=== PATIENT | female | born 1995 | race American Indian/Alaskan Native ===

== ENCOUNTER 2018-10-31 21:27 | Emergency (ER) | payer OTHER | END 2018-10-31 21:34 | disposition left against medical advice (07) | LOC: DL.ED 21:27 | DX: Z53.21 Procedure and treatment not carried out due to patient leaving prior to being seen by health care provider (principal) | CPT/HCPCS: 99281 ==

== ENCOUNTER 2020-09-02 10:45 | Emergency (ER) | payer MEDICAID, OTHER ==
[2020-09-02 11:28] VITALS: BP 108/68; PULSE 99
--- NOTE | 2020-09-02 11:31 | EDM.PDOC ---
<Mannie Lopez Enmanuel - Last Filed: 09/02/20 11:47> ED HPI GENERAL MEDICAL PROBLEM - General Chief Complaint: Skin Complaint Stated Complaint: MARTINEZ BITE Time Seen by Provider: 09/02/20 11:25 Source of Information: Reports: Patient, RN - History of Present Illness INITIAL COMMENTS - FREE TEXT/NARRATIVE: 25 y/o F c/o bilateral ear pain and bilateral ear pain after getting frostbite l ast night. Pt had an argument with someone and then left the house she was at. Pt then states she walked 2 miles to her uncles house. Pt was outside for about thirty minutes and had no hat and her jeans had holes in the knees. Pt states she her ears and knees began to hurt shortly after she got to her uncles house. No other med hx. Denies humphreys, vision prob, db, cp, abd pn, other extremity pain and . Onset: Sudden, Other (last night) Location: Reports: Head, Lower Extremity, Left, Lower Extremity, Right Quality: Reports: Ache, Burning Severity: Mild Improves with: Reports: None Worsens with: Reports: None Associated Symptoms: Reports: No Other Symptoms Bilateral Ear Pain Score (Numeric/FACES): 4 - Related Data Allergies Allergy/AdvReac Type Severity Reaction Status Date / Time No Known Allergies Allergy Verified 09/02/20 11:29 Home Meds: Home Meds . [No Known Home Meds] 06/18/15 [History] Past Medical History - Past Health History Medical/Surgical History: Denies Medical/Surgical History Social & Family History - Family History Family Medical History: No Pertinent Family History - Caffeine Use Caffeine Use: Reports: Coffee, Soda - Living Situation & Occupation Living situation: Reports: with Significant Other, with Family ED ROS GENERAL - Review of Systems Review Of Systems: Comprehensive ROS is negative, except as noted in HPI. ED EXAM, SKIN/RASH Exam: See Below Exam Limited By: No Limitations General Appearance: Alert, WD/WN, No Apparent Distress Eye Exam: Bilateral Eye: PERRL Ears: Normal Canal, Normal TMs, Other (bilateral swelling and reddening of the external ear. 3x3x2 cm blister to the L superior ear.) Nose: Normal Inspection, Normal Mucosa, No Blood Throat/Mouth: Normal Inspection, Normal Lips, Normal Teeth, Normal Gums, Normal Oropharynx, Normal Voice, No Airway Compromise Head: Atraumatic, Normocephalic Neck: Normal Inspection, Supple, Non-Tender, Full Range of Motion Respiratory/Chest: No Respiratory Distress, Lungs Clear, Normal Breath Sounds, No Accessory Muscle Use, Chest Non-Tender Cardiovascular: Normal Peripheral Pulses, Regular Rate, Rhythm, No Edema, No Gallop, No JVD, No Murmur, No Rub Peripheral Pulses: 2+: Carotid (L), Carotid (R), Dorsalis Pedis (L), Dorsalis Pedis (R) GI/Abdominal: Soft, Non-Tender (Female) Exam: Deferred Rectal (Female) Exam: Deferred Back Exam: Normal Inspection, Full Range of Motion, NT Extremities: Normal Inspection, Normal Range of Motion, No Pedal Edema, Other (except for bilateral reddening and excoriations to both knees from frostbite) Neurological: Alert, Oriented, CN II-XII Intact, Normal Cognition, Normal Gait, Normal Reflexes, No Motor/Sensory Deficits Psychiatric: Normal Affect, Normal Mood Skin: Warm, Dry, Intact, Normal Color, Other (except for aforementioned areas) Departure - Departure Time of Disposition: 11:36 Disposition: Home, Self-Care 01 Condition: Good Clinical Impression: Frostbite Qualifiers: Encounter type: initial encounter Qualified Code(s): T33.90XA - Superficial frostbite of unspecified sites, initial encounter - Discharge Information *PRESCRIPTION DRUG MONITORING PROGRAM REVIEWED*: Not Applicable *COPY OF PRESCRIPTION DRUG MONITORING REPORT IN PATIENT RUDDY: Not Applicable Instructions: Frostbite, [id number] Referrals: Bridgette Smith MD [Primary Care Provider] - Forms: ED Department Discharge Additional Instructions: Rx: Silvadene Use prescription as directed. Do not puncture blister on your L ear as it may expose you to infection. The blister will eventually absorb on its own or rupture on its own. If the blister ruptures continue to keep the area clean and dry. Monitor yourself for worsening skin changes such as blackening of your skin on your ears and knees. If new symptoms or concerns develop go to your primary care provider or return to the [facility] and [facility]. <Derek Schmitt - Last Filed: 09/02/20 16:20> Course - Vital Signs Last Recorded V/S: Last Vital Signs Temp 36.6 C 09/02/20 11:25 Pulse 99 09/02/20 11:25 Resp 16 09/02/20 11:25 BP 108/68 09/02/20 11:25 Pulse Ox 100 09/02/20 11:25 - Orders/Labs/Meds Meds: Medications Discontinued Medications Generic Name Dose Route Start Last Admin Trade Name Freq PRN Reason Stop Dose Admin Silver Sulfadiazine 1 gm 09/02/20 11:43 09/02/20 11:53 Silvadene 1% Cream 50 Gm TOP 09/02/20 11:44 1 applic ONETIME ONE Administration - Re-Assessments/Exams Free Text/Narrative Re-Assessment/Exam: 09/02/20 16:16 I have examined the patient. I have discussed findings and treatment plan with the PA student. I agree with the assessment and plan in the following students note. Sepsis Event Note (ED) - Focused Exam Vital Signs: Vital Signs Temp Pulse Resp BP Pulse Ox 09/02/20 11:25 36.6 C 99 16 108/68 100
[2020-09-02] MEDS ORDERED: Silver Sulfadiazine 1% Crm 50 GM Tube TOP ONE (11:43)
== END 2020-09-02 11:56 | disposition home or self-care (01) ==
LOC: DL.ED 10:45
DX: T33.72XA Superficial frostbite of left knee and lower leg, initial encounter (principal); T33.71XA Superficial frostbite of right knee and lower leg, initial encounter; T33.011A Superficial frostbite of right ear, initial encounter; T33.012A Superficial frostbite of left ear, initial encounter; X31.XXXA Exposure to excessive natural cold, initial encounter
CPT/HCPCS: 99283; A9270

== ENCOUNTER 2021-06-07 00:12 | Inpatient (IN) | payer MEDICAID ==
[2021-06-07] MEDS: Lactated Ringers 1,000 ML IV SCH ×2 (00:20→01:48)
[2021-06-07] MEDS ORDERED: Penicillin G Potassium 5 MILLUNITS in Sodium Chloride 0.9% 100 ML IV ONE (00:33)
[2021-06-07] MEDS ORDERED: Penicillin G Potassium 5,000,000 Unit Vial ONE (00:41)
[2021-06-07] MEDS ORDERED: Lactated Ringers 1,000 ML IV SCH (00:45)
[2021-06-07] MEDS ORDERED: fentaNYL 100 MCG/2 ML SDV ITHECAL ONE (01:00)
[2021-06-07] MEDS ORDERED: Sodium Chloride 0.9% 20 ML SDV ONE (01:00)
[2021-06-07] MEDS ORDERED: Sodium Bicarbonate 4.2% 2.5 MEQ/5 ML SDV ONE ×2 (01:00→01:10)
[2021-06-07] MEDS ORDERED: fentaNYL 100 MCG/2 ML SDV IV ONE (01:00)
[2021-06-07] MEDS ORDERED: EPINEPHrine 1 MG/ML SDV ONE (01:00)
[2021-06-07] MEDS ORDERED: fentaNYL 100 MCG/2 ML SDV ONE (01:08)
[2021-06-07] MEDS ORDERED: Promethazine 25 MG/ML SDV IM PRN (01:16)
[2021-06-07] MEDS ORDERED: Lidocaine 1% 30 ML SDV INJECT PRN (01:16)
[2021-06-07] MEDS ORDERED: Tranexamic Acid 1,000 MG in Sodium Chloride 0.9% 100 ML IV PRN (01:16)
[2021-06-07] MEDS ORDERED: Famotidine 20 MG/2 ML SDV IVPUSH PRN (01:16)
[2021-06-07] MEDS ORDERED: Methylergonovine 0.2 MG/1 ML Amp IM PRN (01:16)
[2021-06-07] MEDS ORDERED: Carboprost Tromethamine 250 MCG/1 ML Amp IM PRN (01:16)
[2021-06-07] MEDS ORDERED: Ondansetron 4 MG/2 ML SDV IVPUSH PRN ×2 (01:16)
[2021-06-07] MEDS ORDERED: ePHEDrine 50 MG/ML SDV IVPUSH PRN (01:16)
[2021-06-07] MEDS ORDERED: Naloxone 2 MG/2 ML Syringe IVPUSH PRN (01:16)
[2021-06-07] MEDS ORDERED: Misoprostol 400 MCG (4 X 100 MCG TAB) RECTAL PRN (01:16)
[2021-06-07] MEDS ORDERED: Acetaminophen 325 MG Tab PO PRN (01:16)
[2021-06-07] MEDS ORDERED: Lactated Ringers 500 ML IV SCH (01:30)
[2021-06-07] MEDS ORDERED: Naltrexone 50 MG Tab PO SCH (01:30)
--- NOTE | 2021-06-07 02:26 | PCM.SN.2 ---
- Free Text/Narrative Note: Intrathecal. Sitting position, sterile prep and drape. 1% lidocaine for skinwheal to L3 L4 and L2 L3 interspace. Introducer at L2 L3 x 2, no CSF. Pt medicated with Fentanyl 50 mcg IV for labor pain control. Introducer at L3 L4 x 2. Pos CSF, neg heme, neg parasthesia. 0.1 ml pf 1:1000 epi, 20 mcg pf Sufenta, 30 mcg pf Fentanyl, 0.4 ml pf NS and 6 mg of 0.75% Marcaine injected after CSF aspiration. Pt to L lateral position. Procedure time 0100 to 0140 Time Documentation
[2021-06-07] MEDS: Oxytocin/Normal Saline 30 UNIT/500 ML BAG IV SCH ×2 (03:30→07:00)
[2021-06-07] MEDS ORDERED: Benzocaine/Menthol 20%-0.5% Spray 78 GM Cannister TOP PRN (07:35)
[2021-06-07] MEDS ORDERED: Simethicone 80 MG Tab.Chew PO PRN (07:35)
[2021-06-07] MEDS ORDERED: ceFAZolin 1 GM Vial ONE (08:53)
[2021-06-07] MEDS: Prenatal Multivitamin with Calcium/Folic Acid/Iron Tab PO SCH (09:04)
--- NOTE | 2021-06-07 09:05 | HP ---
CHIEF COMPLAINT: Spontaneous rupture of membranes with labor. HISTORY OF PRESENT ILLNESS: A 26-year-old, 3, para 0-0-2-0, currently at 40 and 2/7 weeks gestation, presents to the hospital with her mother reporting spontaneous rupture of membranes at approximately 10:30 in the night on 06/06/2021. Fluid was mostly clear, but a little bit blood-tinged. She was continuing to have good movement. Contractions had been becoming stronger and closer together, so they presented to the hospital for further evaluation. HISTORY: History of 12-week SAB in 08/2010 and an 8-week SAB 07/2015. LABS: Blood type O positive, antibody screen negative. Rubella immune. Syphilis nonreactive. Urine culture initially with E coli. Hepatitis B negative. HIV negative. Gonorrhea detected 10/07/2020, treated. Test of cure negative, 11/01/2020. Chlamydia negative. TSH normal. Hepatitis C negative. Wet prep remarkable for clue cell. 1-hour glucose tolerance test 129. Quad screen negative. Hemoglobin lowest was 8.4. After Venofer infusion last hemoglobin at the clinic was 10.4 and group B strep positive. PAST MEDICAL HISTORY: Acne, alcohol use, anorexia, gonorrhea, and urinary tract infection. PAST SURGICAL HISTORY: Nexplanon x2. No other surgeries. FAMILY HISTORY: Mother is alive and has a history of bulimia. Father , had a history of alcohol abuse and liver cirrhosis. Sister, alive and well. Two brothers alive and well. A third brother is and he had acne and bipolar disorder. Maternal grandmother is alive, has heart disease with history of bypass surgery, high blood pressure and diabetes. Maternal grandfather, alive with diabetes. Maternal grandmother with cancer. Paternal grandfather , alcoholic liver cirrhosis. Two paternal uncles with alcohol abuse and liver cirrhosis. 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 Father of the baby is Anthony Ramirez and he does carpentry work, but not currently working. He is healthy and smokes. This will be his 5th child, her 1st. Her family lives here in the [place] area and is involved and supportive. MEDICATIONS: vitamin 1 daily. Iron 325 mg 3 times daily, however, this was not working before, so she did receive an iron transfusion a few weeks ago. ALLERGIES: No known drug allergies. REVIEW OF SYSTEMS: As per the history of present illness. No fever, chills. No nausea, vomiting, diarrhea, constipation, headaches or blurry vision. She does have increased edema of the lower extremities as well as of her hands. Otherwise, review of systems is negative. PHYSICAL EXAMINATION: Vital Signs: Blood pressure 131/89, pulse 110, respiratory rate 18. She is afebrile. Recheck of blood pressure, there was a diastolic greater than 90, but the monitor was not printing. HEENT: Grossly unremarkable. Neck: Supple without adenopathy. Heart: Regular without murmur. Lungs: Clear to auscultation bilaterally. Abdomen: Gravid. : Baby is vertex position. heart tones baseline 120 beats per minute with a category 1 tracing. Ashli every 2 minutes. Cervix per nurse exam 6 cm dilated, 95% effaced, and +1 station. Extremities: 3+ edema. No erythema or tenderness. Neurological: No focal findings. Reflex is normal. ASSESSMENT: 1. A 40 and 2/7 weeks intrauterine based on last menstrual period and consistent with 12 week 6 day ultrasound. 2. 3, para 0-0-2-0. 3. Active labor. 4. Group B strep positive. 5. Anemia of , requiring iron transfusion. 6. History of gonorrhea in the 1st trimester, treated and test of cure negative. History of yeast infection, treated without complication. PLAN: The patient admitted to the hospital, anticipated to continue with spontaneous labor and will be anticipating vaginal delivery. Intrathecal when desired for pain management. Due to the elevated diastolic blood pressure, we will also check urine protein-creatinine ratio and will monitor her blood pressures to see if she has any recurrent episodes of elevated blood pressures. This is strictly because of pain. [facility] /[id number] MTDD
[2021-06-07] MEDS ORDERED: Sodium Chloride 0.9% 50 ML ONE (09:09)
[2021-06-07] MEDS: Ibuprofen 800 MG Tab PO PRN ×2 (09:15→16:52)
[2021-06-07] MEDS: Ferrous Sulfate 325 MG Tab PO SCH ×2 (10:34→21:24)
--- NOTE | 2021-06-07 11:40 | DEL ---
DATE: 06/07/2021 PROCEDURE PERFORMED: Spontaneous vaginal delivery with prior use of vacuum to help with maintaining position of fetus and helping with maternal pushing efforts. PREPROCEDURE DIAGNOSES: 1. 40-2/7 weeks' intrauterine based on last menstrual period and confirmed with 12-week ultrasound, 3, para 0-0-2-0. 2. Spontaneous rupture of membranes, 10:30 p.m. on 06/06/2021. 3. Anemia of requiring iron transfusion. 4. History of spontaneous x2. 5. History of gonorrhea in the first trimester. 6. Proteinuria. 7. Elevated blood pressure x1 with pain on contractions. 8. Group B strep positive. POSTPROCEDURE DIAGNOSES: 1. 40-2/7 weeks' intrauterine based on last menstrual period and confirmed with 12-week ultrasound, 3, now para 1-0-2-1. 2. Spontaneous rupture of membranes, 10:30 p.m. on 06/06/2021. 3. Anemia of requiring iron transfusion. 4. History of spontaneous x2. 5. History of gonorrhea in the first trimester. 6. Proteinuria. 7. Elevated blood pressure x1 with pain on contractions. 8. Group B strep positive. 9. Elevated blood pressure while pushing. 10.Spontaneous vaginal delivery. 11.Bilateral anterior labial laceration, repaired. 12. hemorrhage. 13.Umbilical cord rupture. 14.Placental fragment retained. 15.Need for bimanual massage and uterine exploration. BRIEF HISTORY: 26-year-old female with the above-listed diagnoses who presented to the hospital with spontaneous rupture of clear fluid and immediate onset of contractions. She received an intrathecal when she was about 6 to 7 cm dilated and continued on to complete thereafter. Once ready, she ended up pushing for about 50 minutes and pushing efforts were strong, however, effectiveness was variable, and she had a hard time keeping the baby down at the perineum. So vacuum assistance was called for in order to help keep the baby at the +3 through delivery level and to help mother understand exactly where she needed to focus her pushing efforts at. After a couple of pop-offs, baby's head was staying down low enough that no further assistance was necessary, and she ultimately delivered spontaneous vaginal. Prior to application of the procedure, we ensured that anesthesia was adequate. Exit plan was readily available, and Dr. Mccann was available in-house should there be any complication. It was explained to the mother and the patient that the vacuum could cause increased risk of scalp lacerations, vaginal lacerations, tears, increased risk of shoulder dystocia and need for other operative delivery, but that she was not making effective descent of her baby and pushes overall were ineffective. There were pulls with a total of 4 contractions, 2 pop-offs. Pressure was maintained in the yellow while waiting and in the green with pulls. Low-profile vacuum was used and there were no complications. Baby did have a significant amount of hair, which also contributed to the pop-off. Delivery itself, spontaneous vaginal delivery in the OA position. Viable female infant over intact perineum. Infant was entangled in the umbilical cord, which she was untangled from around the foot and then baby dried, stimulated, and the fluid bulb suctioned out of the mouth as well as a gauze wiped through the mouth, and the baby placed upon mother's abdomen. After a delay, 3-vessel umbilical cord was doubly clamped and cut, and cord blood sample obtained. While attempting to deliver the placenta, there was a rupture of the umbilical vein proximal to where the clamp was placed and then the clamp was moved, and we had successful delivery of the placenta after approximately 4 minutes. The labia, vagina, and cervix were inspected. Perineum and cervix were intact. There were bilateral anterior lacerations, which were repaired with 4-0 Vicryl in the usual fashion. During this time, placenta was also inspected and there was a small probable 1 cm area of placenta that was not accounted for, and patient was having intermittent issues with vaginal bleeding despite what felt like good uterine tone. Bimanual massage and uterine exploration were performed and no fragments of placenta were found, likely passed along with some of the clots and blood. Uterine tone was controlled with the bimanual massage, running Pitocin at 999, giving a dose of IM Methergine, rectal Cytotec, and eventually also a dose of TXA. After the repairs were done, there was still some bleeding from the right labial laceration, so a [id number] suture was placed for good hemostasis, and after that, sponge and instrument counts were correct. COMPLICATIONS: None. ESTIMATED BLOOD LOSS: 800 mL. FINDINGS: Baby girl; score of 8 and 9; weight 3765 g, 8 pounds 5 ounces. DISPOSITION: Mother and baby to stay in the room, initiate skin to skin, and start . [facility] /[id number]
[2021-06-07] MEDS ORDERED: ceFAZolin 1 GM in Sodium Chloride 0.9% 50 ML IV SCH (14:00)
[2021-06-07] MEDS: ceFAZolin 1 GM in Sodium Chloride 0.9% 50 ML IV SCH ×2 (16:11→23:51)
[2021-06-07] MEDS: Docusate Sodium 100 MG Cap PO PRN (21:24)
[2021-06-08] MEDS: ceFAZolin 1 GM in Sodium Chloride 0.9% 50 ML IV SCH (09:13)
[2021-06-08] MEDS: Prenatal Multivitamin with Calcium/Folic Acid/Iron Tab PO SCH (09:31)
[2021-06-08] MEDS: Ibuprofen 800 MG Tab PO PRN ×2 (09:31→20:02)
[2021-06-08] MEDS: Docusate Sodium 100 MG Cap PO PRN ×2 (09:31→20:02)
[2021-06-08] MEDS: Ferrous Sulfate 325 MG Tab PO SCH ×2 (09:32→20:02)
--- NOTE | 2021-06-08 12:13 | PN ---
DATE: 06/08/2021 SUBJECTIVE: Post delivery day #1, 26-year-old 3, now para 1-0-2-1, had a vaginal delivery yesterday, complicated by hemorrhage secondary to uterine atony, controlled with uterotonic medications, bimanual massage, and manual exploration for a small piece of potential retained placenta, which was not found. She had bilateral labial lacerations, which were repaired without incident. She reports she is doing well. Vaginal bleeding has lessened. No chest pain. No shortness of breath. Swelling in the lower extremities has improved. No headaches or blurry vision and denies other acute concerns. She has elected to bottle feed her baby and is looking forward to discharge home tomorrow. OBJECTIVE: Vital Signs: . Heart: Regular rate and rhythm without obvious murmur. Lungs: Clear to auscultation bilaterally. Abdomen: Soft, nontender. Fundus is firm and below the umbilicus. Extremities: 2+ edema. No erythema or tenderness noted. This is improved. LABORATORY DATA: Hemoglobin is down to 8.9, platelets are 235. Estimated blood loss was 800 mL and her starting hemoglobin was 11.2. ASSESSMENT: 1. day #1 post vaginal delivery with bilateral labial laceration repairs. 2. hemorrhage. 3. Proteinuria. 4. Previously elevated blood pressures, resolved. 5. Anemia of and blood loss. PLAN: Continue routine cares and make any changes as needed. Anticipate discharge home tomorrow. [facility] /[id number]
[2021-06-09 08:00] VITALS: BP 114/73; PULSE 94
[2021-06-09] MEDS: Prenatal Multivitamin with Calcium/Folic Acid/Iron Tab PO SCH (13:30)
[2021-06-09] MEDS: Ferrous Sulfate 325 MG Tab PO SCH (13:31)
== END 2021-06-09 10:00 | disposition home or self-care (01) | DRG 806 ==
LOC: DL.OBCHECK 00:12 → DL.OB 00:32 → OBSVTOIN 05:37 → DL.OB 05:37
PROVIDERS: ADMIT Family Medicine; ATTEND Family Medicine
PROC: 10E0XZZ Delivery of Products of Conception, External Approach (ICD-10-PCS; principal; 2021-06-07)
PROC: 0HQ9XZZ Repair Perineum Skin, External Approach (ICD-10-PCS; 2021-06-07)
DX: O48.0 Post-term pregnancy (principal); O72.1 Other immediate postpartum hemorrhage; Z37.0 Single live birth; Z3A.40 40 weeks gestation of pregnancy; O99.02 Anemia complicating childbirth; O99.824 Streptococcus B carrier state complicating childbirth; O69.9XX0 Labor and delivery complicated by cord complication, unspecified, not applicable or unspecified; Z20.822 Contact with and (suspected) exposure to COVID-19
CPT/HCPCS: 01967; 36415; 51701; 59409; 82570; 84156; 85027; A9270-GY; J0171; J0690; J2210; J2540; J2590; J3010; J7120; U0002

== ENCOUNTER 2023-08-01 16:48 | Emergency (ER) | payer MEDICAID ==
[2023-08-01 17:08] VITALS: BP 121/92; PULSE 99
[2023-08-01 18:39] LABS: BASOPHILS PERCENT AUTO 0.3 % (0.0-1.0); EOSINOPHILS PERCENT AUTO 1.9 % (1.0-3.0); HEMATOCRIT 36.9 % (37.0-47.0); HEMOGLOBIN 11.9 g/dL (12.0-16.0); MEAN CORPUSCULAR HEMOGLOBIN 27.9 pg (27.0-34.0); MEAN CORPUSCULAR HGB CONC 32.2 g/dL (33.0-35.0); MEAN CORPUSCULAR VOLUME 86.6 fL (80-100); MONOCYTES PERCENT AUTO 5.6 % (2-8); NEUTROPHILS PERCENT AUTO 71.2 % (42.2-75.2); PLATELET COUNT,PLT 374 10^3/uL (150-450); RED BLOOD CELL COUNT 4.26 10^6/uL (4.2-5.4); WHITE BLOOD CELL COUNT,WBC 10.3 10^3/uL (5.0-10.0)
[2023-08-01] MEDS ORDERED: Albuterol/Ipratropium 3.0-0.5 MG/3 ML Neb Soln NEB ONE (18:49)
[2023-08-01] MEDS ORDERED: Codeine/Promethazine 10-6.25 MG/5 ML Syrup 5 ML UD Cup PO ONE (18:49)
[2023-08-01 19:01] LABS: LACTIC ACID 1.3 mmol/L (0.4-2.0)
[2023-08-01 19:15] LABS: CORONAVIRUS COVID-19 NAA NEGATIVE (NEGATIVE); INFLUENZA A NAA NEGATIVE (NEGATIVE); INFLUENZA B NAA NEGATIVE (NEGATIVE); RESPIRATORY SYNCYTIAL VIR NAA NEGATIVE (NEGATIVE)
[2023-08-01] MEDS ORDERED: Take Home: Benzonatate 100 MG, 6 Cap Pack PO ONE (19:57)
[2023-08-01] MEDS ORDERED: methylPREDNISolone Sodium Succinate 125 MG/2 ML SDV IM ONE (20:01)
== END 2023-08-01 20:26 | disposition home or self-care (01) ==
LOC: DL.ED 16:48
DX: J40 Bronchitis, not specified as acute or chronic (principal); Z79.899 Other long term (current) drug therapy
CPT/HCPCS: 0241U; 36415; 71046; 83605; 84703; 85025; 87081; 87430; 96372; 99284; A9270; J2930; J7620-GY